=== PATIENT | female | born 1935 | race Hispanic/Latino ===

== ENCOUNTER → 2018-05-03 | Outpatient (CLI) | payer MEDICARE | END | disposition home or self-care (01) | LOC: RAH 07:01 | PROVIDERS: ATTEND Nurse Practitioner Family | DX: M25.78 Osteophyte, vertebrae (principal); M47.896 Other spondylosis, lumbar region | CPT/HCPCS: 72100; 73502; 73552 ==

== ENCOUNTER → 2018-08-08 | Outpatient (CLI) | payer MEDICARE | END | disposition home or self-care (01) | LOC: RAH 08:36 | PROVIDERS: ATTEND Neurological Surgery | DX: M18.0 Bilateral primary osteoarthritis of first carpometacarpal joints (principal) | CPT/HCPCS: 72148 ==